=== PATIENT | female | born 1985 | race Caucasian/White ===

== ENCOUNTER 2017-06-19 20:36 | Emergency (ER) | payer SELFPAY ==
[~2017-06-19] VITALS: Ht 162.6 cm; Wt 95.0 kg
[2017-06-19 20:38] VITALS: BP 140/92; PULSE 82; RESP 16; TEMP 98.2; O2SAT 99
[2017-06-20] MEDS ORDERED: IBUPROFEN 600 MG TAB PO ONE (02:30)
[2017-06-20] MEDS ORDERED: AMOXICILLIN (TRIHYDRATE) 500 MG CAP PO ONE (02:30)
--- NOTE | 2017-06-20 02:32 | PD ---
HPI Chief Complaint: ENT Complaint Time Seen by Provider: 23:54 Travel History International Travel<30 days: No Contact w/Intl Traveler<30days: No Traveled to known affect area: No History of Present Illness HPI pt has sore throat swollen tonsills , her 3 year old had posotive flu swab but no symptoms except fevr one day . and her 10 yr old had cough congestion ,, now she has had only swollen tonsils and pain bilateral for 2 days , pt has not seen anMD fpr this complaint PFSH Past Medical History Medical History: Denies Significant Hx Tetanus Vaccination: < 5 Years Influenza Vaccination: No ?: Not LMP: 06/05/17 Past Surgical History Appendectomy: Yes Social History Alcohol Use: No Tobacco Use: No Substance Use: No Allergies-Medications (Allergen,Severity, Reaction): Coded Allergies: sulfamethoxazole (Verified Allergy, Unknown, Headache, 06/19/17) trimethoprim (Verified Allergy, Unknown, Headache, 06/19/17) Reported Meds & Prescriptions Reported Meds & Active Scripts Active Ibuprofen 600 Mg Tab 600 Mg PO Q6H PRN Amoxicillin 500 Mg Tab 500 Mg PO TID Review of Systems Except as stated in HPI: all other systems reviewed are Neg HENT: Positive: Sore Throat Physical Exam Narrative GENERAL: Nontoxic-appearing awake alert SKIN: Warm and dry. HEAD: Atraumatic. Normocephalic. EYES: Pupils equal and round. No scleral icterus. No injection or drainage. ENT: No nasal bleeding or discharge. Mucous membranes pink and moist. Tonsils bilateral are some red swollen mild exudate NECK: Trachea midline. No JVD. CARDIOVASCULAR: Regular rate and rhythm. RESPIRATORY: No accessory muscle use. Clear to auscultation. Breath sounds equal bilaterally. GASTROINTESTINAL: Abdomen soft, non-tender, nondistended. Hepatic and splenic margins not palpable. MUSCULOSKELETAL: Extremities without clubbing, cyanosis, or edema. No obvious deformities. NEUROLOGICAL: Awake and alert. No obvious cranial nerve deficits. Motor grossly within normal limits. Five out of 5 muscle strength in the arms and legs. Normal speech. PSYCHIATRIC: Appropriate mood and affect; insight and judgment normal. Data Data Last Documented VS Orders Orders Influenzae A/B Antigen (06/20/17 01:02) Group A Rapid Strep Screen (06/20/17 01:04) Strep Culture (Group A) (06/20/17 01:08) Amoxicillin (Trimox) (06/20/17 02:30) Ibuprofen (Motrin) (06/20/17 02:30) Ed Discharge Order (06/20/17 03:03) MDM Medical Decision Making Medical Screen Exam Complete: Yes Emergency Medical Condition: Yes Differential Diagnosis Influenza versus strep pharyngitis versus tonsillitis versus upper respiratory infection viral Narrative Course strep pharyngitis vs influenza vs viral syndrome vs tonsillitis , other Diagnosis Primary Impression: Acute tonsillitis Qualified Codes: J03.90 - Acute tonsillitis, unspecified Patient Instructions: General Instructions, Tonsillitis (ED) Scripts Ibuprofen (Ibuprofen) 600 Mg Tab 600 MG PO Q6H Y for Pain/Inflammation, #40 TAB 0 Refills Prov: Claudy Valdivia MD 06/20/17 Amoxicillin (Amoxicillin) 500 Mg Tab 500 MG PO TID for Infection, #30 TAB 0 Refills Prov: Claudy Valdivia MD 06/20/17 Disposition: 01 DISCHARGE HOME Condition: Good Claudy Valdivia MD Jun 20, 2017 02:32
[2017-06-20] MEDS ORDERED: IBUP-232 PO (02:54)
[2017-06-20] MEDS ORDERED: AMOX500T PO (02:54)
== END 2017-06-20 03:03 | disposition home or self-care (01) ==
LOC: NEPC 20:36
DX: J03.90 Acute tonsillitis, unspecified (principal)
CPT/HCPCS: 87081; 87804; 87880; 99283